=== PATIENT | male | born 1945 ===

== ENCOUNTER 2023-09-14 06:49 | Day surgery (SDC) | payer OTHER ==
[2023-09-10 09:27] VITALS: BP 146/84; PULSE 69; RESP 16
[2023-09-10 09:29] LABS: BASOPHILS # (AUTO) 0.01 K/uL (0.00-0.20); BASOPHILS % (AUTO) 0.2 % (0.0-5.0); EOSINOPHILS # (AUTO) 0.04 K/uL (0.00-0.70); EOSINOPHILS % (AUTO) 0.9 % (0.0-8.0); HEMATOCRIT 39.8 % (42-54); IMMATURE GRANULOCYTE ABSOLUTE 0.01 K/uL (0-1); LYMPHOCYTES # (AUTO) 1.4 K/uL (1.0-4.8); LYMPHOCYTES % (AUTO) 29.9 % (21.0-51.0); MEAN CORPUSCULAR HEMOGLOBIN 30.8 pg (27.0-33.0); MEAN CORPUSCULAR HGB CONC 33.9 g/dL (32.0-36.0); MEAN CORPUSCULAR VOLUME 90.7 fL (79-99); MONOCYTES # (AUTO) 0.4 K/uL (0.1-1.0); MONOCYTES % (AUTO) 8.2 % (3.0-13.0); NEUTROPHILS # (AUTO) 2.8 K/uL (1.8-7.7); NEUTROPHILS % (AUTO) 60.6 % (40.0-77.0); PLATELET COUNT (AUTO) 103 K/uL (130-400); RED BLOOD CELL COUNT(AUTO) 4.39 MIL/uL (4.50-6.20); RED CELL DISTRIBUTION WIDTH 14.1 % (11.0-15.5); WHITE BLOOD COUNT (AUTO) 4.6 K/uL (4.8-10.8)
[2023-09-10 09:35] LABS: CREATININE 0.7 mg/dL (0.5-1.3); POTASSIUM 5.2 mmol/L (3.5-5.1)
[2023-09-10 09:37] LABS: INR 0.94 (0.85-1.15); PROTHROMBIN TIME 11.1 SEC (9.6-11.6)
[2023-09-10 09:38] LABS: PARTIAL THROMBOPLASTIN TIME 31.8 SEC (26.3-35.5)
[2023-09-10 10:00] LABS: B-TYPE NATRIURETIC PEPTIDE 28 pg/mL (0-100)
[~2023-09-14] VITALS: Ht 170.2 cm; Wt 71.4 kg
[2023-09-14] VITALS (9 sets, daily range): BP systolic 96–143; BP diastolic 57–93; PULSE 75–99; RESP 14–18
[~2023-09-14 06:49] MED LIST: AEC81 PO; CYAN-106 PO; FAMO40TA7 PO; LISI10TA24 PO; OMEP20CA12 PO; ROSU5TAB12 PO
[2023-09-14] MEDS: 0.9%NACL 1000ML 1,000 ML IV ONE (08:15)
[2023-09-14] MEDS ORDERED: VERAPAMIL HCL 2.5 MG/ML VIAL ONE (09:43)
[2023-09-14] MEDS ORDERED: MIDAZOLAM HCL 1 MG/ML 2ML VIAL ONE (09:43)
[2023-09-14] MEDS ORDERED: LIDOCAINE HCL 400MG/20ML VIAL ONE (09:43)
[2023-09-14] MEDS ORDERED: IOHEXOL-350 75 ML VIAL IV ONE (09:43)
[2023-09-14] MEDS ORDERED: FENTANYL CITRATE PF 50 MCG/1 ML 2ML VIAL ONE (09:43)
[2023-09-14] MEDS ORDERED: NITROGLYCERIN 50MG VIAL ONE (09:44)
[2023-09-14] MEDS ORDERED: HEPARIN 10,000 UNIT/10ML (1,000 UNIT/ML) VIAL ONE (09:44)
[2023-09-14] MEDS ORDERED: 0.9%NACL 1000ML 1,000 ML IV SCH (11:00)
== END 2023-09-14 14:05 | disposition home or self-care (01) ==
LOC: DAH 06:49
PROVIDERS: ATTEND Internal Medicine
DX: I25.118 Atherosclerotic heart disease of native coronary artery with other forms of angina pectoris (principal); I49.1 Atrial premature depolarization; I10 Essential (primary) hypertension; E78.5 Hyperlipidemia, unspecified; R94.31 Abnormal electrocardiogram [ECG] [EKG]; Z98.890 Other specified postprocedural states; Z82.49 Family history of ischemic heart disease and other diseases of the circulatory system; Z82.3 Family history of stroke; Z72.89 Other problems related to lifestyle; Z79.01 Long term (current) use of anticoagulants; Z79.899 Other long term (current) drug therapy
CPT/HCPCS: 80048; 83880; 85025; 85610; 85730; 36415; 71045; 93005; 93458; C1769 ×2; C1894; A4649; J3010; J3490 ×3; J7030; J1644 ×2; J2250; Q9967; A4215; A4222; A4221; A4663; A4216; A4606; A4223 ×3; 99156; 99157

== ENCOUNTER 2023-10-19 16:30 | Inpatient (IN) | payer OTHER ==
[~2023-10-19] VITALS: Ht 169.9 cm; Wt 60.8 kg
[2023-10-19 10:20] VITALS: BP 113/71; PULSE 65; RESP 16
[2023-10-19 10:23] LABS: BASOPHILS # (AUTO) 0.01 K/uL (0.00-0.20); BASOPHILS % (AUTO) 0.2 % (0.0-5.0); EOSINOPHILS # (AUTO) 0.06 K/uL (0.00-0.70); EOSINOPHILS % (AUTO) 1.1 % (0.0-8.0); HEMATOCRIT 38.4 % (42-54); IMMATURE GRANULOCYTE ABSOLUTE 0.02 K/uL (0-1); LYMPHOCYTES # (AUTO) 1.4 K/uL (1.0-4.8); LYMPHOCYTES % (AUTO) 25.2 % (21.0-51.0); MEAN CORPUSCULAR HGB CONC 33.3 g/dL (32.0-36.0); MONOCYTES # (AUTO) 0.6 K/uL (0.1-1.0); MONOCYTES % (AUTO) 10.9 % (3.0-13.0); NEUTROPHILS # (AUTO) 3.4 K/uL (1.8-7.7); NEUTROPHILS % (AUTO) 62.2 % (40.0-77.0); PLATELET COUNT (AUTO) 101 K/uL (130-400); RED CELL DISTRIBUTION WIDTH 14.5 % (11.0-15.5); WHITE BLOOD COUNT (AUTO) 5.4 K/uL (4.8-10.8)
[2023-10-19 10:28] LABS: HEMOGLOBIN A1C 5.6 % (4.0-6.0)
[2023-10-19 10:33] LABS: ALBUMIN 3.7 g/dL (3.5-5.0); BILIRUBIN,TOTAL 1.1 mg/dL (0.2-1.0); CREATININE 0.8 mg/dL (0.5-1.3); POTASSIUM 4.4 mmol/L (3.5-5.1); TOTAL PROTEIN, SERUM 7.5 g/dL (6.0-8.3)
[2023-10-19 10:35] LABS: INR 0.97 (0.85-1.15); PROTHROMBIN TIME 11.5 SEC (9.6-11.6)
[2023-10-19 10:36] LABS: PARTIAL THROMBOPLASTIN TIME 28.8 SEC (26.3-35.5)
[2023-10-19 10:54] LABS: B-TYPE NATRIURETIC PEPTIDE 28 pg/mL (0-100)
[2023-10-19 11:18] LABS: ABG BASE EXCESS -4.9 mmol/L (-2.0-3.0); ABG HCO3 18.7 mmol/L (21.0-28.0); ABG OXYGEN SATURATION 96.2 % (95.0-99.0); ABG PCO2 31 mmHg (35-48); ABG PH 7.398 (7.35-7.450); CARBON MONOXIDE 0.8; HHb 3.8; PO2, ARTERIAL BG 84.9 mmHg (83.0-108.0); VENT MODE, BG RA (ROOM AIR)
[~2023-10-19 16:30] MED LIST changes: +ISOS30TA92 PO; -OMEP20CA12 PO; -ROSU5TAB12 PO; +ROSU5TAB43 PO
[2023-10-20] VITALS (76 sets, daily range): BP systolic 88–226; BP diastolic 47–222; PULSE 63–105; RESP 5–34; TEMP 97.8–99.1; O2SAT 40–100
[2023-10-20] MEDS ORDERED: EPINEPHRINE PF 1MG (1:1,000) 10 MG in 0.9% NACL 250ML 240 ML IV PRN ×2 (06:30→08:00)
[2023-10-20] MEDS ORDERED: AMINOCAPROIC ACID 5,000MG VIAL 15,000 MG in 0.9% NACL 500ML IV.SOLN 420 ML IV PRN (06:30)
[2023-10-20] MEDS ORDERED: NOREPINEPHRIN 8MG/250ML NS 250 ML IV PRN (06:30)
[2023-10-20] MEDS: METOPROLOL TARTRATE 25 MG TAB ONE (06:36)
[2023-10-20] MEDS: 0.9%NACL 1000ML 1,000 ML IV ONE (06:36)
[2023-10-20] MEDS ORDERED: LACTULOSE 20 GM/30 ML UDCUP PO PRN (07:00)
[2023-10-20] MEDS ORDERED: NITROGLYCERIN 50MG/D5W 250ML 1 BOT ONE (07:15)
[2023-10-20] MEDS ORDERED: NOREPINEPHRINE BITARTRATE 1 MG/1 ML ML IV ONE (07:38)
[2023-10-20] MEDS ORDERED: SODIUM BICARB 50MEQ 50ML VIAL 200 ML ONE (07:38)
[2023-10-20] MEDS ORDERED: LIDOCAINE PF 100MG/5ML (2%) SYRINGE 5ML ONE (07:38)
[2023-10-20] MEDS ORDERED: PROTAMINE SULFATE 10 MG/ML 25ML VIAL IV ONE (07:38)
[2023-10-20] MEDS ORDERED: EPINEPHRINE PF 1MG (1:1,000) 1 MG/ML AMP ONE (07:38)
[2023-10-20] MEDS ORDERED: FENTANYL CITRATE PF 50 MCG/1 ML 20ML VIAL IJ ONE (07:39)
[2023-10-20] MEDS ORDERED: GLYCOPYRROLATE 0.2 MG/ML 5 ML VIAL ONE (07:39)
[2023-10-20] MEDS ORDERED: MIDAZOLAM HCL 1 MG/ML 2ML VIAL ONE (07:39)
[2023-10-20] MEDS ORDERED: ROCURONIUM BROMIDE 10MG/1ML 5ML VL ONE (07:39)
[2023-10-20] MEDS ORDERED: PROPOFOL 10 MG/ML 20ML VIAL IV ONE (07:39)
[2023-10-20] MEDS ORDERED: KETAMINE 50MG/ML SYRINGE 50 MG/ML DISP.SYRIN ONE (07:41)
[2023-10-20] MEDS ORDERED: 0.9%NACL 10ML VIAL IVP PRN (08:00)
[2023-10-20] MEDS ORDERED: ALBUMIN (HUMAN) 5% 250 ML IV PRN (08:00)
[2023-10-20] MEDS ORDERED: AMINOCAPROIC ACID 5,000MG VIAL 15,000 MG in 0.9% NACL 250ML 250 ML IV SCH (08:00)
[2023-10-20] MEDS ORDERED: DEXTROSE 50%-WATER 50 ML DISP.SYRIN IV PRN (08:00)
[2023-10-20] MEDS ORDERED: PROPOFOL 1000 MG/100 ML 100 ML IV PRN (08:00)
[2023-10-20] MEDS ORDERED: MORPHINE 2 MG SYG IV PRN ×2 (08:00→18:00)
[2023-10-20] MEDS ORDERED: GLUCAGON 1MG KIT 1 MG ML IM PRN (08:00)
[2023-10-20] MEDS ORDERED: 0.9% NACL 500ML IV.SOLN 500 ML IV SCH (08:00)
[2023-10-20] MEDS ORDERED: NOREPINEPHRINE BITARTRATE 8 MG in DEXTROSE 5%-WATER 250 ML IV PRN (08:00)
[2023-10-20] MEDS ORDERED: ACETAMINOPHEN 650 MG SUPPOSITORY RC PRN (08:00)
[2023-10-20] MEDS ORDERED: POTASSIUM PHOS 15 mMOL+NS250ML 250 ML IV PRN (08:00)
[2023-10-20] MEDS: CEFAZOLIN SODIUM 2 GM VIAL ONE (08:05)
[2023-10-20 08:34] LABS: ABG BASE EXCESS -5.8 mmol/L (-2.0-3.0); ABG HCO3 18.7 mmol/L (21.0-28.0); ABG OXYGEN SATURATION 99.5 % (95.0-99.0); ABG PCO2 34 mmHg (35-48); ABG PH 7.364 (7.35-7.450); CARBON MONOXIDE 0.5; DEVICE COMMENT 1; HHb 0.5; PO2, ARTERIAL BG 401.9 mmHg (83.0-108.0)
[2023-10-20] MEDS: ASPIRIN 81 MG EC TAB PO SCH (09:00)
[2023-10-20] MEDS: CEFAZOLIN SODIUM 1 GM VIAL ONE (09:13)
[2023-10-20] MEDS: PAPAVERINE HCL 30 MG/ML 2ML VIAL ONE (09:14)
[2023-10-20] MEDS ORDERED: AMIODARONE 150MG VIAL ONE (09:36)
[2023-10-20 09:48] LABS: ABG HCO3 22.4 mmol/L (21.0-28.0); ABG OXYGEN SATURATION 98.9 % (95.0-99.0); ABG PCO2 37 mmHg (35-48); ABG PH 7.404 (7.35-7.450); CARBON MONOXIDE 0.3; DEVICE COMMENT 3; HHb 1.1; PO2, ARTERIAL BG 319.3 mmHg (83.0-108.0)
[2023-10-20] MEDS ORDERED: POTASSIUM CHLORIDE 20MEQ/100ML 100 ML IV ONE (09:51)
[2023-10-20] MEDS ORDERED: HEPARIN 10,000 UNIT/10ML (1,000 UNIT/ML) VIAL ONE (09:54)
[2023-10-20 10:23] LABS: ABG BASE EXCESS -2.4 mmol/L (-2.0-3.0); ABG HCO3 22.7 mmol/L (21.0-28.0); ABG PCO2 40 mmHg (35-48); ABG PH 7.369 (7.35-7.450); CARBON MONOXIDE 0.3; VENT MODE, BG SIMV PS 10 (ROOM AIR)
[2023-10-20 10:32] LABS: HEMATOCRIT 29.8 % (42-54); MEAN CORPUSCULAR HGB CONC 34.6 g/dL (32.0-36.0); MEAN CORPUSCULAR VOLUME 92.5 fL (79-99); RED BLOOD CELL COUNT(AUTO) 3.22 MIL/uL (4.50-6.20); RED CELL DISTRIBUTION WIDTH 14.5 % (11.0-15.5); WHITE BLOOD COUNT (AUTO) 11.9 K/uL (4.8-10.8)
[2023-10-20 10:43] LABS: INR 1.16 (0.85-1.15); PROTHROMBIN TIME 13.5 SEC (9.6-11.6)
[2023-10-20 10:45] LABS: PARTIAL THROMBOPLASTIN TIME 24.2 SEC (26.3-35.5)
[2023-10-20 10:46] LABS: CREATININE 0.7 mg/dL (0.5-1.3); MAGNESIUM 1.8 mg/dL (1.80-2.40); PHOSPHORUS 4.9 mg/dL (2.5-4.9); POTASSIUM 3.8 mmol/L (3.5-5.1)
[2023-10-20] MEDS: POTASSIUM CHLORIDE 20MEQ/100ML 100 ML IV PRN (10:54)
[2023-10-20] MEDS: MAGNESIUM 2GM PREMIX 50ML 50 ML IV PRN (10:54)
[2023-10-20] MEDS: SODIUM BICARB 50MEQ 50ML VIAL IV PRN (10:55)
[2023-10-20] MEDS: MORPHINE 4 MG SYG IV PRN (11:01)
[2023-10-20] MEDS: NITROGLYCERIN 50MG/D5W 250ML 250 BOT IV SCH (11:20)
[2023-10-20] MEDS: FAMOTIDINE 20MG VIAL IV SCH (11:28)
[2023-10-20] MEDS: ASPIRIN 81MG CHEW TAB NG ONE (11:29)
[2023-10-20] MEDS: INSULIN REGULAR, HUMAN 3ML 100 UNIT in 0.9%NACL 100ML 99 ML IV SCH (11:32)
[2023-10-20 11:39] LABS: ABG OXYGEN SATURATION 99.2 % (95.0-99.0); ABG PCO2 33 mmHg (35-48); ABG PH 7.479 (7.35-7.450); CARBON MONOXIDE 0.5; DEVICE COMMENT ALINE; HHb 0.8; PO2, ARTERIAL BG 248.4 mmHg (83.0-108.0); VENT MODE, BG SIMV (ROOM AIR)
[2023-10-20] MEDS: TRAMADOL HCL 50 MG TABLET PO PRN (12:37)
[2023-10-20 12:47] LABS: ABG BASE EXCESS 0.9 mmol/L (-2.0-3.0); ABG PCO2 34 mmHg (35-48); ABG PH 7.473 (7.35-7.450); CARBON MONOXIDE 0.3; VENT MODE, BG SIMV PS 10 (ROOM AIR)
[2023-10-20] MEDS: ONDANSETRON 4MG INJ IV PRN (12:56)
[2023-10-20] MEDS: 0.9%NACL 1000ML 1,000 ML IV SCH (13:29)
[2023-10-20] MEDS: CEFAZOLIN SODIUM 2 GM VIAL IVPB SCH (13:29)
[2023-10-20 13:48] LABS: ABG BASE EXCESS 0.2 mmol/L (-2.0-3.0); ABG HCO3 22.8 mmol/L (21.0-28.0); ABG OXYGEN SATURATION 98.7 % (95.0-99.0); ABG PCO2 31 mmHg (35-48); ABG PH 7.489 (7.35-7.450); CARBON MONOXIDE 0.4; DEVICE COMMENT ALINE; HHb 1.3; PO2, ARTERIAL BG 163.7 mmHg (83.0-108.0); VENT MODE, BG SIMV PS10 (ROOM AIR)
[2023-10-20 15:27] LABS: ABG BASE EXCESS -2.6 mmol/L (-2.0-3.0); ABG HCO3 21.6 mmol/L (21.0-28.0); ABG OXYGEN SATURATION 98.6 % (95.0-99.0); ABG PCO2 35 mmHg (35-48); ABG PH 7.404 (7.35-7.450); CARBON MONOXIDE 0.5; HHb 1.4; PO2, ARTERIAL BG 163.5 mmHg (83.0-108.0); VENT MODE, BG SIMV PS 10 (ROOM AIR)
[2023-10-20 16:22] LABS: ABG HCO3 25.4 mmol/L (21.0-28.0); ABG OXYGEN SATURATION 98.6 % (95.0-99.0); ABG PCO2 32 mmHg (35-48); ABG PH 7.524 (7.35-7.450); CARBON MONOXIDE 0.5; HHb 1.4; PO2, ARTERIAL BG 160.8 mmHg (83.0-108.0); VENT MODE, BG SIMV PS 10 (ROOM AIR)
[2023-10-20] MEDS: CALCIUM GLUC 1GM 1 GM in 0.9%NACL 50ML 50 ML IV PRN (16:27)
[2023-10-20 17:14] LABS: ABG BASE EXCESS 2.6 mmol/L (-2.0-3.0); ABG HCO3 25.9 mmol/L (21.0-28.0); ABG OXYGEN SATURATION 98.2 % (95.0-99.0); ABG PCO2 36 mmHg (35-48); ABG PH 7.479 (7.35-7.450); CARBON MONOXIDE 0.5; HHb 1.8; PO2, ARTERIAL BG 130.7 mmHg (83.0-108.0); VENT MODE, BG SIMV PS 10 (ROOM AIR)
[2023-10-20] MEDS: AMIODARONE 900MG VIAL 360 MG in DEXTROSE 5%-WATER 200 ML IV SCH (18:34)
[2023-10-20 19:35] LABS: ABG BASE EXCESS -0.8 mmol/L (-2.0-3.0); ABG OXYGEN SATURATION 96.5 % (95.0-99.0); ABG PCO2 35 mmHg (35-48); ABG PH 7.436 (7.35-7.450); CARBON MONOXIDE 0.4; HHb 3.5; PO2, ARTERIAL BG 91.3 mmHg (83.0-108.0); VENT MODE, BG SIMV (ROOM AIR)
[2023-10-20 19:36] LABS: DEVICE COMMENT A LINE RN BRISA
[2023-10-20] MEDS: DOCUSATE SODIUM 100 MG CAP PO ONE (20:40)
[2023-10-20] MEDS: ATORVASTATIN 40 MG TABLET PO SCH (20:40)
[2023-10-20 21:11] LABS: ABG HCO3 24.7 mmol/L (21.0-28.0); ABG OXYGEN SATURATION 98.2 % (95.0-99.0); ABG PCO2 40 mmHg (35-48); ABG PH 7.404 (7.35-7.450); CARBON MONOXIDE 0.3; HHb 1.8; PO2, ARTERIAL BG 139.7 mmHg (83.0-108.0); VENT MODE, BG AM,40 (ROOM AIR)
[2023-10-21] VITALS (96 sets, daily range): BP systolic 103–171; BP diastolic 44–78; PULSE 68–85; RESP 4–26; TEMP 98.7–99.7; O2SAT 99–100
[2023-10-21] MEDS: AMIODARONE 900MG VIAL 540 MG in DEXTROSE 5%-WATER 300 ML IV SCH (01:10)
[2023-10-21 04:11] LABS: HEMATOCRIT 30.3 % (42-54); MEAN CORPUSCULAR HEMOGLOBIN 32.1 pg (27.0-33.0); MEAN CORPUSCULAR HGB CONC 33.3 g/dL (32.0-36.0); MEAN CORPUSCULAR VOLUME 96.2 fL (79-99); RED BLOOD CELL COUNT(AUTO) 3.15 MIL/uL (4.50-6.20); WHITE BLOOD COUNT (AUTO) 10.3 K/uL (4.8-10.8)
[2023-10-21 04:24] LABS: INR 0.95 (0.85-1.15); PROTHROMBIN TIME 11.3 SEC (9.6-11.6)
[2023-10-21 04:25] LABS: PARTIAL THROMBOPLASTIN TIME 27.3 SEC (26.3-35.5)
[2023-10-21 04:30] LABS: CREATININE 0.7 mg/dL (0.5-1.3); MAGNESIUM 1.9 mg/dL (1.80-2.40); PHOSPHORUS 3.1 mg/dL (2.5-4.9); POTASSIUM 3.7 mmol/L (3.5-5.1)
[2023-10-21] MEDS: TRAMADOL HCL 50 MG TABLET PO PRN (06:13)
[2023-10-21] MEDS: FUROSEMIDE 20MG VIAL IV SCH (08:05)
[2023-10-21] MEDS: AMIODARONE 200 MG TABLET PO SCH (20:17)
[2023-10-22] VITALS (37 sets, daily range): BP systolic 90–137; BP diastolic 38–74; PULSE 63–87; RESP 11–33; TEMP 98.2–99.6; O2SAT 92–99
[2023-10-22 03:36] LABS: HEMATOCRIT 29.8 % (42-54); MEAN CORPUSCULAR HEMOGLOBIN 31.8 pg (27.0-33.0); MEAN CORPUSCULAR HGB CONC 34.2 g/dL (32.0-36.0); MEAN CORPUSCULAR VOLUME 92.8 fL (79-99); PLATELET COUNT (AUTO) 69 K/uL (130-400); RED BLOOD CELL COUNT(AUTO) 3.21 MIL/uL (4.50-6.20); RED CELL DISTRIBUTION WIDTH 14.6 % (11.0-15.5); WHITE BLOOD COUNT (AUTO) 8.8 K/uL (4.8-10.8)
[2023-10-22 03:45] LABS: CREATININE 0.7 mg/dL (0.5-1.3); POTASSIUM 3.6 mmol/L (3.5-5.1)
[2023-10-22] MEDS: INSULIN HUMULIN R 100 UNIT/ML 3ML SQ SCH (07:30)
[2023-10-22] MEDS: FAMOTIDINE 20MG TAB PO SCH (08:33)
[2023-10-22] MEDS: METOPROLOL TARTRATE 25 MG TAB PO SCH (08:33)
[2023-10-22] MEDS: POLYETHYLENE GLYCOL 3350 17 GM POWD.PACK PO SCH (08:33)
[2023-10-22] MEDS: FUROSEMIDE 20 MG TABLET PO SCH (08:33)
[2023-10-22] MEDS: ACETAMINOPHEN 325 MG TAB PO PRN (11:36)
[2023-10-22 16:00] LABS: MAGNESIUM 2.1 mg/dL (1.80-2.40); POTASSIUM 4.1 mmol/L (3.5-5.1)
[2023-10-23] VITALS (9 sets, daily range): BP systolic 96–118; BP diastolic 58–62; PULSE 74–83; RESP 16–18; TEMP 99; O2SAT 94–95
[2023-10-23] MEDS: ACETAMINOPHEN 325 MG TAB PO PRN (00:11)
[2023-10-23] MEDS: MAGNESIUM HYDROXIDE 30 ML/UDCUP PO PRN (00:11)
[2023-10-23 03:58] LABS: HEMATOCRIT 31.3 % (42-54); MEAN CORPUSCULAR HEMOGLOBIN 31.9 pg (27.0-33.0); MEAN CORPUSCULAR HGB CONC 33.9 g/dL (32.0-36.0); MEAN CORPUSCULAR VOLUME 94.3 fL (79-99); RED BLOOD CELL COUNT(AUTO) 3.32 MIL/uL (4.50-6.20)
[2023-10-23 04:08] LABS: CREATININE 0.8 mg/dL (0.5-1.3); POTASSIUM 4.5 mmol/L (3.5-5.1)
[2023-10-23] MEDS: LACTULOSE 20 GM/30 ML UDCUP PO PRN (07:16)
[2023-10-23] MEDS: ENOXAPARIN SODIUM 30 MG/0.3 ML SQ SCH (08:23)
[2023-10-23] MEDS ORDERED: POLYETHYLENE GLYCOL 3350 17 GM POWD.PACK PO SCH (09:00)
[2023-10-24] VITALS (8 sets, daily range): BP systolic 91–119; BP diastolic 59–73; PULSE 67–77; RESP 18–20; O2SAT 95–96
[2023-10-24 04:21] LABS: HEMATOCRIT 29.9 % (42-54); MEAN CORPUSCULAR HEMOGLOBIN 31.6 pg (27.0-33.0); MEAN CORPUSCULAR HGB CONC 34.4 g/dL (32.0-36.0); MEAN CORPUSCULAR VOLUME 91.7 fL (79-99); RED BLOOD CELL COUNT(AUTO) 3.26 MIL/uL (4.50-6.20); RED CELL DISTRIBUTION WIDTH 13.8 % (11.0-15.5); WHITE BLOOD COUNT (AUTO) 9.1 K/uL (4.8-10.8)
[2023-10-24 05:08] LABS: CREATININE 0.9 mg/dL (0.5-1.3); POTASSIUM 4.7 mmol/L (3.5-5.1)
[2023-10-25] VITALS (8 sets, daily range): BP systolic 110–131; BP diastolic 63–88; PULSE 66–74; RESP 18–20; O2SAT 96–99
[2023-10-25 06:20] LABS: HEMATOCRIT 30.7 % (42-54); MEAN CORPUSCULAR HEMOGLOBIN 32.1 pg (27.0-33.0); MEAN CORPUSCULAR HGB CONC 34.5 g/dL (32.0-36.0); RED BLOOD CELL COUNT(AUTO) 3.3 MIL/uL (4.50-6.20); RED CELL DISTRIBUTION WIDTH 13.7 % (11.0-15.5); WHITE BLOOD COUNT (AUTO) 8.2 K/uL (4.8-10.8)
[2023-10-25 06:44] LABS: ALBUMIN 2.4 g/dL (3.5-5.0); BILIRUBIN,DIRECT 0.3 mg/dL (0.0-0.3); BILIRUBIN,TOTAL 1.3 mg/dL (0.2-1.0); CREATININE 0.6 mg/dL (0.5-1.3); POTASSIUM 3.8 mmol/L (3.5-5.1); TOTAL PROTEIN, SERUM 6.3 g/dL (6.0-8.3)
[2023-10-26] VITALS (8 sets, daily range): BP systolic 106–132; BP diastolic 68–89; PULSE 67–79; RESP 18; O2SAT 95
[2023-10-27] VITALS (8 sets, daily range): BP systolic 93–131; BP diastolic 65–85; PULSE 65–75; RESP 18–20; O2SAT 95–99
[2023-10-28 03:35] VITALS: BP 119/77; PULSE 78; RESP 20
[2023-10-28 08:00] VITALS: O2SAT 97
[2023-10-28 08:22] VITALS: BP 105/70; PULSE 67; RESP 18
[2023-10-28 12:41] VITALS: BP 106/71; PULSE 71; RESP 18
[2023-10-28 16:48] VITALS: BP 108/76; PULSE 70; RESP 18
== END 2023-10-28 17:33 | DRG 235 ==
LOC: DAHIP 10-20 05:42 → 2CV 10-20 10:09 → 2DH 10-22 21:20
PROVIDERS: ADMIT Thoracic Surgery (Cardiothoracic Vascular Surgery); ATTEND Thoracic Surgery (Cardiothoracic Vascular Surgery)
PROC: 02100Z9 Bypass Coronary Artery, One Artery from Left Internal Mammary, Open Approach (ICD-10-PCS; principal; 2023-10-20 07:30)
PROC: 021009W Bypass Coronary Artery, One Artery from Aorta with Autologous Venous Tissue, Open Approach (ICD-10-PCS; 2023-10-20 07:30)
PROC: 06BQ4ZZ Excision of Left Saphenous Vein, Percutaneous Endoscopic Approach (ICD-10-PCS; 2023-10-20 07:30)
PROC: 0PS004Z Reposition Sternum with Internal Fixation Device, Open Approach (ICD-10-PCS; 2023-10-20 07:30)
PROC: 02HV33Z Insertion of Infusion Device into Superior Vena Cava, Percutaneous Approach (ICD-10-PCS; 2023-10-21)
PROC: B548ZZA Ultrasonography of Superior Vena Cava, Guidance (ICD-10-PCS; 2023-10-21)
DX: I25.10 Atherosclerotic heart disease of native coronary artery without angina pectoris (principal); I49.01 Ventricular fibrillation; D62 Acute posthemorrhagic anemia; J90 Pleural effusion, not elsewhere classified; I48.91 Unspecified atrial fibrillation; D69.6 Thrombocytopenia, unspecified; E78.00 Pure hypercholesterolemia, unspecified; E87.70 Fluid overload, unspecified; I10 Essential (primary) hypertension; I73.9 Peripheral vascular disease, unspecified; I48.0 Paroxysmal atrial fibrillation; K21.9 Gastro-esophageal reflux disease without esophagitis; Z89.511 Acquired absence of right leg below knee; Z79.899 Other long term (current) drug therapy; Z95.1 Presence of aortocoronary bypass graft
CPT/HCPCS: 36415; 36600; 71045; 80048; 80053; 80061; 80076; 82330; 82435; 82803; 82947; 82948; 83036; 83605; 83735; 83880; 84100; 84132; 84295; 85018; 85025; 85027; 85347; 85610; 85730; 86850; 86900; 86901; 86923; 87641; 93005; 93312; 93318; 93880; 94002; 94010; 94150; A7048; G0378; J0171; J0282; J0612; J0690; J1644; J1650; J1815; J1940; J2001; J2250; J2270; J2405; J2440; J2704; J2720; J3010; J3475; J3480; J3490; J7030; J7040; J7060; P9045; A4215; A4221; A4222; A4223; A4315; A4452; A4649; A4663; A4930; A5120; A6204; A6219; A6260; C1713; C1776; G0168